=== PATIENT | male | born 1940 | race Caucasian/White ===

== ENCOUNTER 2018-11-13 10:09 | Observation (INO) | payer MEDICARE, BC ==
[~2018-11-13] VITALS: Ht 185.4 cm; Wt 81.6 kg
[~2018-11-13 10:09] MED LIST: ACETAMINOPHEN650 M5 PO; ALLEGRA60 MG; ASPIRIN325; ASPIRIN325 PO; AVODART0.5 MG PO; B-123000 MCG PO; CARDIZEM CD240 MG PO; D3 DOTS2000 UNIT PO; DOXYCYCLINE 10100 MG PO; FISH OIL 1,001000 M2; FLECAINIDE ACET50 M1; FLECAINIDE ACET50 M1 PO; HYDROCHLOROTH12.5 M1; HYTRIN 5 M5 MG/1 CAP PO; HYTRIN10 MG; LISINOPRIL-HCT1 EAC2 PO; LISINOPRIL20 MG; PRINIVIL20 MG PO; PRINIVIL5 MG PO; RYTHMOL225 MG PO; VITAMIN D1000 UNI1 PO; XARELTO20 MG PO; ZESTORETIC 20-1 EAC3 PO
[2018-11-13 10:10] VITALS: BP 155/82
[2018-11-13] MEDS ORDERED: TAMBOCOR 100 M100 M1 PO (10:23)
[2018-11-13 10:42] LABS: ABSOLUTE LYMPHOCYTES 1.1 thou/uL (0.8-5.3); ABSOLUTE MONOCYTES 0.6 thou/uL (0.0-1.2); ABSOLUTE NEUTROPHILS 3.1 thou/uL (1.6-8.1); BASOPHILS 0.8 %; EOSINOPHILS 0.6 %; HEMOGLOBIN 13.5 gm/dL (14.0-18.0); LYMPHOCYTES 21.9 %; MCH 31.3 pg (26.0-34.0); MCHC 34.6 g/dL (28.0-37.0); MCV 90.6 fL (80.0-100.0); MONOCYTES 11.6 %; MPV 7.4 fl. (7.2-11.1); NUCLEATED RBCS 0 /100WBC; PLATELET COUNT* 125 thou/uL (150-400); POLYS 65.1 %; RDW-CV 12.9 % (10.5-14.5); WBC 4.8 thou/uL (4.0-11.0)
[2018-11-13 10:50] LABS: ANION GAP 10 mmol/L (7-16); APTT 26.9 Seconds (25.0-31.3); BUN 24 mg/dL (7-18); CALCIUM 8.5 mg/dL (8.5-10.1); CHLORIDE 107 mmol/L (98-107); CO2 26 mmol/L (21-32); CREATININE 0.9 mg/dL (0.6-1.3); GLUCOSE 104 mg/dL (70-99); POTASSIUM 3.4 mmol/L (3.5-5.1); PROTIME 10.5 Seconds (9.20-11.50); SODIUM 143 mmol/L (136-145)
[2018-11-13 11:00] LABS: ALBUMIN 3.6 g/dL (3.4-5.0); ALKALINE PHOSPHATASE 71 U/L (46-116); LIPASE 146 U/L (73-393); MAGNESIUM 2.1 mg/dL (1.8-2.4); NT-PRO BRAIN NAT PEPTIDE 256 pg/mL (<300); SGOT 15 U/L (15-37); SGPT 21 U/L (30-65); TOTAL BILIRUBIN 0.5 mg/dL (<0.1-1.0); TOTAL PROTEIN 7.2 g/dL (6.4-8.2); TROPONIN-I LEVEL <0.06 ng/mL (<0.06)
--- NOTE | 2018-11-13 16:37 | EKG ---
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1940 Requested By: Chico Vicente Order Number: [id number] MD: Drake Balderrama Measurements Intervals [place] Rate: 147 P: MD: QRS: 268 QRSD: 161 T: 68 QT: 311 QTc: 487 Interpretive Statements atrial fibrillation LEFT ANTERIOR FASCICULAR BLOCK and RBBB Baseline wander in lead(s) III Compared to ECG 07/14/2016 23:18:23 rate increased Electronically Signed On 11-13-2018 16:36:59 CDT by Drake Balderrama [email or web address] <ELECTRONICALLY SIGNED> By: Drake Balderrama MD, [facility] 11/13/18 1636 1014 [id number] Drake Balderrama MD, [facility] /EPI
--- NOTE | 2018-11-13 19:25 | NUR ---
Patient states he wants to go home and states "There is too much going on down here. How am I supposed to get any rest". Dr Goldberg and myself went to patient's room, spoke to him about his concerns and plan of care. Patient verbalized understanding. Pt given update on attempts to get patient moved to inpatient room as soon as possible. Pt agrees to stay at this time.
[2018-11-13 20:00] VITALS: BP 96/65
[2018-11-13 20:30] VITALS: BP 93/67
[2018-11-14] VITALS: BP 109/75
--- NOTE | 2018-11-14 03:12 | NUR ---
PT ARRIVED FROM ER AROUND 2100 TO ROOM 224. ABLE TO MAKE NEEDS KNOWN. HAS CARDIZEM DRIP RUNNING AT 3MG/HR. ASSESSMENT COMPLETED CHARTED. NO C/O PAIN OR DISCOMFORT. UP AD MARVIN IN THE ROOM. PT WANTED TO ANSWER QUESTIONS AND THEN GO TO BED. PT RESTING IN BED AT THIS TIME. WILL CONTINUE TO MONITOR.
[2018-11-14 04:00] VITALS: BP 100/76
[2018-11-14 04:56] LABS: ABSOLUTE LYMPHOCYTES 1.4 thou/uL (0.8-5.3); ABSOLUTE MONOCYTES 0.5 thou/uL (0.0-1.2); ABSOLUTE NEUTROPHILS 2.6 thou/uL (1.6-8.1); BASOPHILS 0.7 %; EOSINOPHILS 0.6 %; HEMATOCRIT 37.1 % (42.0-52.0); HEMOGLOBIN 12.7 gm/dL (14.0-18.0); LYMPHOCYTES 30.5 %; MCH 31.2 pg (26.0-34.0); MCHC 34.3 g/dL (28.0-37.0); MCV 91.2 fL (80.0-100.0); MONOCYTES 11.7 %; MPV 7.6 fl. (7.2-11.1); NUCLEATED RBCS 0 /100WBC; PLATELET COUNT* 136 thou/uL (150-400); POLYS 56.5 %; RBC 4.07 mil/uL (4.50-6.00); RDW-CV 13.1 % (10.5-14.5); WBC 4.7 thou/uL (4.0-11.0)
[2018-11-14 05:09] LABS: ANION GAP 9 mmol/L (7-16); BUN 20 mg/dL (7-18); CALCIUM 8.2 mg/dL (8.5-10.1); CHLORIDE 108 mmol/L (98-107); CO2 27 mmol/L (21-32); CREATININE 0.9 mg/dL (0.6-1.3); GLUCOSE 86 mg/dL (70-99); POTASSIUM 3.4 mmol/L (3.5-5.1); SODIUM 144 mmol/L (136-145); TROPONIN-I LEVEL 0.22 ng/mL (<0.06)
[2018-11-14 05:23] LABS: CHOLESTEROL 153 mg/dL (<200); HDL CHOLESTEROL 49 mg/dL (>40); LDL CHOLESTEROL 97 mg/dL (<100); TC:HDL 3.1 Ratio (Not establshd); TRIGLYCERIDE 38 mg/dL (<150); VLDL 8 mg/dL (<40)
[2018-11-14 05:29] LABS: SERUM ASSESSMENT Clear
[2018-11-14 08:00] VITALS: BP 114/83
[2018-11-14] MEDS ORDERED: CARDIZEM CD240 MG PO (13:35)
[2018-11-14 13:43] VITALS: BP 114/83
--- NOTE | 2018-11-15 16:35 | CON ---
[address] [address] CONSULTATION Name: YG FAIR Room: [address] Vilma Craft#: [id number] Admission: 11/13/18 Attend Phys: Rhoda Currie MD Discharge: 11/14/18 Date of : 36 Report #: [id number] THIS REPORT FOR: //name// CC: Benjamin Hernandez DATE OF SERVICE: 11/13/2018 HISTORY OF PRESENT ILLNESS: The patient is an 78-year-old white male who I was asked to see in the hospital today after he was noted to be in atrial fibrillation. The patient has an extensive past medical history. Apparently, he had atrial fibrillation back in 1997 and was cardioverted here at [facility] by Dr. Wayne. He apparently had a heart catheterization and was found to have normal coronary arteries. He previously was on warfarin, developed a lot of bruising, so we switched to an aspirin a day. He notes, a few years ago, he underwent radiofrequency ablation at [place] by Dr. Jamison. He last saw Dr. Jamison in September. Recently, his blood pressure was low and he cut his flecainide in half and he has been taking 50 mg twice a day. In the last several days, he has had intermittent episodes where his heart will beat irregular. He finally came to the Emergency Room today and was found to be in AFib. He was started on IV Cardizem. I was asked to see him for further evaluation and treatment. He denies any significant chest pain, shortness of breath, fever or bleeding. PAST MEDICAL HISTORY: He has had hernia repair, bladder tumor removal. He has a history of hypertension, prostatism. MEDICATIONS: Avodart, Hytrin, flecainide, diltiazem, lisinopril/HCTZ. He has an aspirin a day. ALLERGIES: He has no known drug allergies. FAMILY HISTORY: His mother had cardiomyopathy. SOCIAL HISTORY: He is . He and his live here in [place]. He is retired from working in [employer]. No smoking or alcohol abuse. REVIEW OF SYSTEMS: He has had no history of stroke, asthma, peptic ulcer disease, liver disease, kidney disease, cancer, psychiatric illness, chronic skin condition. PHYSICAL EXAMINATION: GENERAL: Revealed an elderly male, lying in bed. He appeared in no distress. VITAL SIGNS: He had a blood pressure of 130/80, pulse initially was 140. [place] [address] CONSULTATION Name: YG FAIR Room: [address] Vilma Craft#: [id number] Admission: 11/13/18 Attend Phys: Rhoda Currie MD Discharge: 11/14/18 Date of : 36 Report #: [id number] HEENT: He was anicteric. Conjunctivae pink. Mucous membranes moist. NECK: Veins nondistended. No carotid bruits. Neck supple. CHEST: Clear to auscultation. CARDIAC EXAM: Regular, tachycardia. ABDOMEN: Soft. EXTREMITIES: He has had no edema. Dorsalis pedis pulse could not be palpated. SKIN: Cool and dry. NEUROLOGIC EXAM: Nonfocal. ECG on admission showed atrial fibrillation, rapid ventricular response rate with right bundle-branch block morphology. His workup, he had a chest x-ray today that showed normal heart size, clear lung sarmiento. LABORATORY DATA: Sodium 143, potassium 3.4, creatinine 0.9. His troponin was 0.15. His TSH in 2017 was 3.9. White blood cell count 4.8, hemoglobin 13.5. IMPRESSION AND RECOMMENDATIONS: 1. Paroxysmal atrial fibrillation. The patient has been on flecainide. I would recommend increasing the dose back to 100 mg twice a day. If he fails to convert, he might require cardioversion. I would start anticoagulation with Eliquis at this time. 2. Hypertension. I would hold lisinopril because of low blood pressure. 3. Prostatism. <ELECTRONICALLY SIGNED> By: Drake Balderrama MD, [facility] 11/15/18 1635 1538 [id number] Balderrama MD, [facility] /nt
--- NOTE | 2018-11-16 13:22 | EKG ---
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[place] : 1940 Requested By: Chico Vicente Order Number: [id number] MD: Vernon Hoyt Measurements Intervals [place] Rate: 114 P: 41 [place]: 145 QRS: -71 QRSD: 136 T: 100 QT: 348 QTc: 480 Interpretive Statements Sinus tachycardia Probable left atrial enlargement Left bundle branch block Compared to ECG 11/13/2018 10:14:10 Atrial fibrillation no longer present Electronically Signed On 11-16-2018 13:22:23 CDT by Vernon Hoyt [email or web address] <ELECTRONICALLY SIGNED> By: Vernon Hoyt MD, [facility] 11/16/18 1322 1535 1535 Vernon Hoyt MD, [facility] /EPI
--- NOTE | 2018-11-16 13:28 | EKG ---
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1940 Requested By: Drake Balderrama Order Number: [id number] MD: Vernon Hoyt Measurements Intervals [place] Rate: 123 P: 65 [place]: 123 QRS: -66 QRSD: 138 T: 111 QT: 340 QTc: 487 Interpretive Statements Sinus tachycardia Left bundle branch block Compared to ECG 11/13/2018 10:14:10 Atrial fibrillation no longer present Electronically Signed On 11-16-2018 13:28:32 CDT by Vernon Hoyt [email or web address] <ELECTRONICALLY SIGNED> By: Vernon Hoyt MD, [facility] 11/16/18 1328 0922 1 Vernon Hoyt MD, [facility] /EPI
== END 2018-11-14 14:24 | disposition home or self-care (01) ==
LOC: M.ERS 10:09 → M.TBA-ER 11:16 → M.2W 11:16
PROVIDERS: Emergency Medicine Emergency Medical Services; ADMIT Family Medicine
DX: I48.2 Chronic atrial fibrillation (principal); R07.89 Other chest pain; I10 Essential (primary) hypertension; N40.0 Benign prostatic hyperplasia without lower urinary tract symptoms; R79.89 Other specified abnormal findings of blood chemistry; I48.92 Unspecified atrial flutter; I48.0 Paroxysmal atrial fibrillation; Z88.8 Allergy status to other drugs, medicaments and biological substances; Z79.82 Long term (current) use of aspirin